=== PATIENT | female | born 1950 | race Caucasian/White ===

== ENCOUNTER 2020-08-21 07:09 | Inpatient (IN) ==
[2020-08-21] MEDS ORDERED: GLUCAGON 1 MG VIAL IM PRN (09:23)
[2020-08-21] MEDS ORDERED: DEXTROSE 50% 25 GM/50 ML VIAL IV PRN (09:23)
[2020-08-21] MEDS ORDERED: INFLUENZA VIRUS VACCINE 0.5 ML SYRINGE IM ONE (09:31)
[2020-08-21 10:01] LABS: Basophils % 0.2 % (0.0-0.8); Eosinophils % 0.2 % (0.00-10.9); Hematocrit 39.5 VOL% (35.7-47.0); Hemoglobin 13.3 GM/DL (12.0-16.0); Immature Granulocytes % 0.8 %; Immature Granulocytes Absolute 0.11 #; Lymphocytes # 1.7 10*3/uL (1.4-4.0); Lymphocytes % 13.2 % (21.3-54.2); Mean Corpuscular HGB Conc 33.7 GM/DL (32-36); Mean Corpuscular Volume 86.4 FL (87-102); Mean Platelet Volume 11.3 FL (9.6-12.0); Monocytes % 3.2 % (1.7-12.7); Neutrophils % 82.4 % (38.7-73.9); Platelet Count 279 T/CUMM (130-400); Red Blood Count 4.57 MC/CUMM (3.8-5.5); Red Cell Distribution Width 12.2 % (9.3-17.3); White Blood Count 13.2 T/CUMM (4-12)
[2020-08-21 12:07] LABS: Albumin 3.4 G/DL (3.4-5.0); Bilirubin,Total 0.4 MG/DL (0.2-1.0); Risk Ratio 3.37; Thyroid Stimulating Hormone 1.12 uIU/ml (0.358-3.74); Total Protein 7.2 G/DL (6.4-8.3)
[2020-08-21 13:36] LABS: CKMB % 14.2 %
[2020-08-21 13:43] LABS: Troponin I 15.6 NG/ML (0.00-0.045)
[2020-08-21] MEDS ORDERED: ASPIRIN CHEW 81 MG TABLET PO ONE (13:49)
[2020-08-21] MEDS ORDERED: NITROGLYCERIN SL 0.4 MG TABLET SL PRN (13:50)
[2020-08-21] MEDS ORDERED: CLOPIDOGREL 75 MG TABLET PO SCH (13:53)
[2020-08-21] MEDS: ENOXAPARIN 60 MG/0.6 ML SYRINGE SUBCUT SCH (14:30)
[2020-08-21 16:06] LABS: CKMB % 15.2 %
[2020-08-21 16:09] LABS: Troponin I 33.9 NG/ML (0.00-0.045)
[2020-08-21] MEDS: cefTRIAXone 1,000 MG in SYRINGE 1 EACH IV SCH (16:24)
[2020-08-21 19:28] LABS: Troponin I 45.7 NG/ML (0.00-0.045)
[2020-08-21] MEDS: ROSUVASTATIN 20 MG TABLET PO SCH (20:52)
[2020-08-22] MEDS: ENOXAPARIN 60 MG/0.6 ML SYRINGE SUBCUT SCH ×2 (02:21→13:11)
[2020-08-22 05:57] LABS: Basophils % 0.3 % (0.0-0.8); Eosinophils # 0.1 10*3/uL (0.0-0.87); Eosinophils % 0.8 % (0.00-10.9); Hematocrit 36.6 VOL% (35.7-47.0); Hemoglobin 12.1 GM/DL (12.0-16.0); Immature Granulocytes % 0.4 %; Immature Granulocytes Absolute 0.05 #; Lymphocytes # 2.9 10*3/uL (1.4-4.0); Mean Corpuscular HGB Conc 33.1 GM/DL (32-36); Mean Corpuscular Volume 88.4 FL (87-102); Mean Platelet Volume 11.7 FL (9.6-12.0); Monocytes % 9.7 % (1.7-12.7); Neutrophils % 63.8 % (38.7-73.9); Platelet Count 229 T/CUMM (130-400); Red Blood Count 4.14 MC/CUMM (3.8-5.5); Red Cell Distribution Width 12.4 % (9.3-17.3); White Blood Count 11.6 T/CUMM (4-12)
[2020-08-22 06:13] LABS: Calcium 8.6 MG/DL (8.5-10.1); Osmolality,Calculated 283.1 MOS/KG (273-304)
[2020-08-22] MEDS ORDERED: diphenhydrAMINE CAP 25 MG CAPSULE PO ONE (08:28)
[2020-08-22] MEDS ORDERED: POTASSIUM CHLORIDE RIDER 10 MEQ in PREMIX 1 EACH IV PRN (08:28)
[2020-08-22] MEDS ORDERED: MAGNESIUM SULF RIDER 2 GM in PREMIX 1 EACH IV PRN (08:28)
[2020-08-22] MEDS ORDERED: DIAZEPAM 5 MG TABLET PO ONE (08:28)
[2020-08-22] MEDS: ASPIRIN EC 81 MG TABLET PO SCH (08:57)
[2020-08-22] MEDS: carvediloL 3.125 MG TABLET PO SCH ×2 (08:57→21:05)
[2020-08-22] MEDS: SODIUM CHLORIDE 0.45% 1,000 ML IV SCH ×3 (08:58→21:04)
[2020-08-22] MEDS ORDERED: PARoxetine 10 MG TABLET PO SCH ×2 (09:00→21:00)
[2020-08-22] MEDS ORDERED: VERAPAMIL 5 MG/2 ML VIAL ONE (10:54)
[2020-08-22] MEDS ORDERED: NITROGLYCERIN DRIP 50 MG/250 ML BOTTLE IV ONE (10:54)
[2020-08-22] MEDS ORDERED: LIDOCAINE 1% 20 ML VIAL ONE (10:54)
[2020-08-22] MEDS ORDERED: HEPARIN/NACL 0.9% 2 UNITS/ML 1,000 ML IV ONE (10:54)
[2020-08-22] MEDS ORDERED: NICOTINE 21 MG/24 HR PATCH TRANSDERM PRN (11:16)
[2020-08-22] MEDS ORDERED: MIDAZOLAM 2 MG/2 ML VIAL ONE (11:22)
[2020-08-22] MEDS ORDERED: HYDROmorphone 2 MG/1 ML VIAL ONE (11:22)
[2020-08-22] MEDS ORDERED: ENOXAPARIN 30 MG/0.3 ML SYRINGE ONE (11:32)
[2020-08-22] MEDS: cefTRIAXone 1,000 MG in SYRINGE 1 EACH IV SCH (16:53)
[2020-08-22] MEDS ORDERED: PARoxetine 20 MG TABLET PO SCH (21:00)
[2020-08-22] MEDS: ROSUVASTATIN 20 MG TABLET PO SCH (21:05)
[2020-08-23] MEDS: SODIUM CHLORIDE 0.45% 1,000 ML IV SCH ×2 (01:52→10:17)
[2020-08-23] MEDS: ENOXAPARIN 60 MG/0.6 ML SYRINGE SUBCUT SCH ×2 (02:45→14:20)
[2020-08-23 05:52] LABS: Basophils # 0.1 10*3/uL (0.0-0.2); Basophils % 0.5 % (0.0-0.8); Eosinophils # 0.1 10*3/uL (0.0-0.87); Eosinophils % 1.3 % (0.00-10.9); Hematocrit 35.5 VOL% (35.7-47.0); Hemoglobin 11.7 GM/DL (12.0-16.0); Immature Granulocytes % 0.4 %; Immature Granulocytes Absolute 0.04 #; Lymphocytes # 2.3 10*3/uL (1.4-4.0); Lymphocytes % 21.8 % (21.3-54.2); Mean Corpuscular Volume 88.8 FL (87-102); Mean Platelet Volume 12.9 FL (9.6-12.0); Monocytes % 9.7 % (1.7-12.7); Neutrophils % 66.3 % (38.7-73.9); Platelet Count 202 T/CUMM (130-400); Red Cell Distribution Width 12.1 % (9.3-17.3); White Blood Count 10.5 T/CUMM (4-12)
[2020-08-23 06:15] LABS: Calcium 8.3 MG/DL (8.5-10.1); Osmolality,Calculated 281.3 MOS/KG (273-304)
[2020-08-23] MEDS ORDERED: CLOPIDOGREL 75 MG TABLET PO SCH (09:00)
[2020-08-23] MEDS ORDERED: MULTIVITAMIN (CENTRUM) TABLET PO SCH (09:00)
[2020-08-23] MEDS ORDERED: lisinopriL 20 MG TABLET PO SCH (09:00)
[2020-08-23] MEDS: ASPIRIN EC 81 MG TABLET PO SCH (09:34)
[2020-08-23] MEDS: carvediloL 3.125 MG TABLET PO SCH (09:34)
[2020-08-23] MEDS ORDERED: carvediloL 12.5 MG TABLET PO ONE (10:13)
[2020-08-23] MEDS ORDERED: ISOSORBIDE MONONITRATE 30 MG TABLET PO SCH (10:30)
[2020-08-23 11:52] VITALS: BP 188/98
[2020-08-23] MEDS ORDERED: carvediloL 25 MG TABLET PO SCH (21:00)
== END 2020-08-23 15:57 | disposition home or self-care (01) | DRG 280 ==
LOC: N.TELEN → SUATTDRO 08:51
PROVIDERS: ADMIT Internal Medicine; ATTEND Internal Medicine
PROC: CLCCHCL (ICD-10-PCS; 2020-08-22 11:45)